=== PATIENT | female | born 1990 | race African-American/Black ===

== ENCOUNTER 2023-10-26 01:22 | Emergency (ER) | payer BC, OTHER ==
[~2023-10-26] VITALS: Ht 170.2 cm; Wt 78.0 kg
[2023-10-26 01:26] VITALS: O2SAT 99
[2023-10-26] MEDS ORDERED: DIPHENHYDRAMINE 25MG CAPSULE PO ONE (02:45)
[2023-10-26 04:02] LABS: BASOPHILS % 0.4 % (0.0-2.0); EOSINOPHILS % 0.8 % (0.0-5.0); HEMATOCRIT. 40.8 % (36.0-48.0); HEMOGLOBIN. 12.8 g/dL (12.0-16.0); LYMPHOCYTES % 38.6 % (20.0-50.0); MEAN CORPUSCULAR HEMOGLOBIN 28.3 pg (28.0-32.0); MEAN CORPUSCULAR HGB CONC 31.5 g/dL (31.0-37.0); MEAN CORPUSCULAR VOLUME 89.8 fL (81.0-99.0); MEAN PLATELET VOLUME 8.7 fl (7.4-10.4); MONOCYTES % 11.9 % (2.0-8.0); NEUTROPHILS % 48.3 % (40.0-76.0); PLATELET 282 x1000/uL (130-400); RED BLOOD CELL COUNT 4.54 mill/uL (4.2-5.4); RED CELL DISTRIBUTION WIDTH 14.1 % (11.6-14.6); WHITE BLOOD COUNT 4.6 x1000/uL (4.5-11.0)
[2023-10-26 04:30] LABS: ACETAMINOPHEN < 2 ug/mL (10-30); ALANINE AMINOTRANSFERASE 8 IU/L (10-49); ALBUMIN 4.1 g/dL (3.2-4.8); ASPARTATE AMINOTRANSFERASE 18 IU/L (<34); B-HCG QUANTITATIVE 2007 mIU/mL (<3); BILIRUBIN TOTAL 0.5 mg/dL (0.1-1.0); CALCIUM 8.8 mg/dL (8.7-10.4); CARBON DIOXIDE 23 mEq/L (21-32); CHLORIDE 108 mEq/L (98-107); CREATININE 0.7 mg/dL (0.6-1.0); GLUCOSE 94 mg/dL (70-105); POTASSIUM 3.8 mEq/L (3.5-5.1); PROTEIN TOTAL 7.4 g/dL (6.0-8.3); SODIUM 137 mEq/L (136-145); UREA NITROGEN BLOOD 8 mg/dL (9-23)
[2023-10-26 04:50] LABS: ETHANOL BLOOD < 10 mg/dL (<10)
[2023-10-26 04:50] LABS: *AMPHETAMINES SCREEN URINE PRESUMPTIVE POSITIVE (NEGATIVE); *BARBITURATES SCREEN URINE NEGATIVE (NEGATIVE); *BENZODIAZEPINES SCREEN URINE NEGATIVE (NEGATIVE); *COCAINE SCREEN URINE NEGATIVE (NEGATIVE); CANNABINOID URINE SCREEN PRESUMPTIVE POSITIVE (NEGATIVE); ECSTASY MDMA SCREEN URINE NEGATIVE (NEGATIVE); METHADONE URINE SCREEN Neg (NEGATIVE); OPIATES URINE SCREEN NEGATIVE (NEGATIVE); PHENCYCLIDINE URINE SCREEN NEGATIVE (NEGATIVE)
[2023-10-26 08:00] VITALS: BP 122/81; PULSE 70; RESP 18; TEMP 98.3
== END 2023-10-26 09:25 | disposition left against medical advice (07) ==
LOC: ER 01:51
DX: O26.891 Other specified pregnancy related conditions, first trimester (principal); R45.851 Suicidal ideations; Z98.890 Other specified postprocedural states; Z00.00 Encounter for general adult medical examination without abnormal findings; Z3A.01 Less than 8 weeks gestation of pregnancy
CPT/HCPCS: 80053; 80305; 80307; 80329; 80320; 84702; 85025; 36415; 76801; 76817; 99284; Q0163; G0480